=== PATIENT | female | born 1995 | race Caucasian/White ===

== ENCOUNTER 2025-03-04 12:50 | Emergency (ER) | payer BC, SELFPAY ==
[2025-03-04 12:50] VITALS: BMI 40.5
[2025-03-04 12:51] VITALS: BP 179/103
--- NOTE | 2025-03-04 13:30 | ED.GENMED ---
History of Present Illness
General
Chief Complaint: Vaginal Bleeding
Source: patient
Exam Limitations: none
Time Seen by Provider: 03/04/25 13:11
Nursing documentation reviewed up to this point in time: agreed with
History of Present Illness
History of Present Illness:
Patient is a 29-year-old female approximately 8 weeks (LMP 6/16 presents to the ER for vaginal bleeding. Patient is followed by [facility] and on February 17 had her first ultrasound which did not show a heartbeat or pole. She
started bleeding February 24. She did have a follow-up appointment done yesterday at [facility] and had an ultrasound and is scheduled for D&C tomorrow. She has had bleeding since February 24 to today prior to arrival had very heavy bleeding in place
clots and tissue. She denies any lightheaded dizziness.
Pt reports she is O +.
Past History
Past History
ED Past Medical History: None
ED Past Surgical History: Tonsilectomy
Social History
Tobacco: Non-smoker
Alcohol: None
Drug: None
Phy Exam
General Physical Exam
General Presentation: no apparent distress
General age: appears stated age
General Skin: warm and dry
General Habitus: normal
General Mental: alert
General Hydration: appears well hydrated
Gastrointestinal Exam
Gastrointestinal Exam: non tender and soft
Genitourinary Exam Female
Exam Female: other (pelvic exam : small oozing from OS no clots )
Neurological Exam
Neurological Exam: alert and oriented x3
Musculoskeletal Exam
Musculoskeletal Exam: full ROM
Skin Exam
Skin Exam: normal color and warm/dry
Psychiatric Exam
Psychiatric Exam: normal mood/affect
Course
Orders/Labs/Results
Orders:
Orders
03/04/25 13:39
IV Insert/Care/Rem.- Treatment PRN
0.9% Sodium Chloride 1000 ml [Nss] 1,000 ml IV BOLUS
US W Transvaginal Urgent
Reason For Exam: vag bleeding
03/04/25 13:50
Blood Group&Type Urgent
Beta HCG Quantitative Urgent
Is this a screen?: No
Complete Blood Count/With Diff Urgent
Comprehensive Metabolic Panel Urgent
Abnormal Lab Results
03/04/25
13:50
WBC 13.0 H 10^3/uL
(4.8-10.8)
Abs Immat Gran (auto) 0.1 H 10^3/uL
(0-0.05)
Absolute Neuts (auto) 9.4 H 10^3/uL
(1.4-6.5)
Absolute Monos (auto) 0.7 H 10^3/uL
(0.1-0.6)
Immature Gran % 0.6 H %
(0-0.5)
Lymphocytes % 20.0 L %
(20.5-51.1)
03/04/25 13:50
03/04/25 13:50
Vital Signs
Initial and Last Documented VS:
Initial Vital Signs
Temp Pulse Resp BP Pulse Ox
98.5 F 110 20 179/103 99
03/04/25 12:51 03/04/25 12:51 03/04/25 12:51 03/04/25 12:51 03/04/25 12:51
Last Documented Vital Signs
Temp Pulse Resp BP Pulse Ox
98.5 F 87 16 124/63 98
03/04/25 12:51 03/04/25 14:11 03/04/25 14:11 03/04/25 14:30 03/04/25 14:30
MDM/Problems Addressed
MDM/Problems Addressed:
Patient was approximate 8 weeks with bleeding however she was scheduled for a D and C tomorrow by her [facility] group at [facility] tomorrow. She started with heavier bleeding today which that prompted her to come to the ER. Pelvic exam
shows minimal bleeding no clots. Hemoglobin stable white count minimally elevated likely reactive
Ultrasound done and pending blood type done and pending HC
1735: Ultrasound shows intrauterine sac is present with mean diameter 1.64 cm no evidence for embryo heartbeat or yolk sac
I did review this with patient patient was given a copy of her report she is to follow-up with her [employer] tomorrow was scheduled for D&C
*Pulse Oximetry
SaO2: 99
Oxygen Mode of Delivery: Room air
Patient hypoxic: no
*Critical Care Note
Total Time (30-74mins, 75-104mins- exclusive of procedures): Not Applicable
ED Attending Note
-
Portions of this chart may have been created with voice recognition software.� Occasional wrong word or��sound alike� substitutions may have occurred due to the inherent limitations of voice recognition software.
Discharge Plan
Departure
Patient Disposition: Home (Routine Discharge)
Date of Disposition: 03/04/25
Time of Disposition: 17:36
Patient with high blood pressure during this ER visit?: Yes
Condition: Fair
Covid-19: Not Applicable
Discharge Problem:
Incomplete miscarriage
Prescriptions:
No Action
ondansetron 4 MG tablet,disintegrating
4 mg PO TIDPRN PRN (Reason: nausea) Qty: 15 0RF
amoxicillin 875 MG tablet
875 mg PO BID Qty: 14 0RF
azithromycin 250 MG tablet
250 mg PO DAILY 5 Days 0RF
Rx Instructions:
take 500mg on day #1 and then 250mg days 2-5.
Referrals:
Zeenat Valentino DO [Family Provider, Family Practice]
Activity Restrictions/Additional Instructions:
Findings are consistent with incomplete miscarriage is as discussed please follow-up with your [employer] as scheduled tomorrow for D&C. Return if any worsening of symptoms.
Interventions
Interventions:
*Risk Screen - Suicide Last Done: 03/04/25 13:52
*General Assessment Last Done: 03/04/25 12:51
*Neglect/Abuse Screening Last Done: 03/04/25 13:52
*ED- Fall Risk Assessment Last Done: 03/04/25 13:52
ED-Female Genitourinary Assessment Last Done: 03/04/25 13:52
Discharge Date and Time
Print Language: TURKISH
[2025-03-04] MEDS: NSS 1000 IV (13:48)
[2025-03-04 14:07] LABS: Hematocrit 40.1 % (37.0-47.0); Hemoglobin 13.4 g/dL (12.0-16.0); Mean Corp Hgb Conc. 33.4 g/dL (33.0-37.0); Mean Corpuscular Volume 86.8 fL (81.0-99.0); Nucleated Red Blood Cells % 0 %; Platelet Count 386 10^3/uL (130-400); Red Cell Dist. Width 13.6 % (11.5-14.5)
[2025-03-04 14:11] VITALS: BP 142/79
[2025-03-04 14:13] VITALS: BP 143/74
[2025-03-04 14:22] LABS: ALT (SGPT) 21 U/L (0-35); AST (SGOT) 18 U/L (14-36); Albumin 4.3 g/dl (3.5-5.0); Alkaline Phosphatase 89 U/L (38-126); Blood Urea Nitrogen 9 mg/dl (7-17); Calcium 9.6 mg/dl (8.4-10.2); Carbon Dioxide 23 mmol/L (22-30); Chloride 107 mmol/L (98-107); Estimated Creatinine Clearance > 125 ml/min; Glucose 95 mg/dl (70-99); Potassium 4.0 mmol/L (3.5-5.1); Sodium 137 mmol/L (135-145); Total Protein 6.8 g/dl (6.3-8.2); eGFR > 60.00
[2025-03-04 14:30] VITALS: BP 124/63
[2025-03-04 14:41] LABS: Beta HCG Quantitative 3114.80 mIU/ml
[2025-03-04 15:00] VITALS: BP 121/62
[2025-03-04 15:30] VITALS: BP 121/56
== END 2025-03-04 17:40 | disposition home or self-care (01) ==
LOC: EMR 12:50
PROVIDERS: Nurse Practitioner; EMERGENCY PHYSICIAN Emergency Medicine; FAMILY PHYSICIAN Family Medicine
DX: O03.4 Incomplete spontaneous abortion without complication (principal); Z3A.10 10 weeks gestation of pregnancy; R03.0 Elevated blood-pressure reading, without diagnosis of hypertension
CPT/HCPCS: 99284; 96360; 76801; 76817; 80053; 84702; 85025; 86900; 86901